=== PATIENT | female | born 1985 | race Caucasian/White ===

== ENCOUNTER 2017-02-27 19:37 | Emergency (ER) | payer SELFPAY ==
--- NOTE | 2017-02-28 05:44 | ER ---
ADMIT: 02/27/2017 RM/LOC: ER [facility] MR#: [id number] [address] [facility] [address] [place], [place] [address] ROBBY GUERRIER [address] [place] [address] Emergency Room Report SEX: F AGE: 32 : 1985 DATE: 02/27/2017 The patient is a 32-year-old female, complaining of nausea and vomiting after taking multiple recreational drugs for the past 2 days including methadone, alcohol, and methamphetamine, complains of protracted vomiting since. Exam remarkable for nontoxic, afebrile female, in no acute distress. Normal CBC, CMP, except potassium 3.5, negative hCG. Lipase normal, free T4, TSH. Negative Tylenol and salicylate. EKG showed sinus rhythm without ST-T or Q- wave change, normal QTc. The patient was given IV fluids, Zofran, with relief of nausea and vomiting. Home with Zofran 8 mg ODT t.i.d. #30 plus #3 from [facility]. Follow up with Dr. Marroquin as needed. David Tran MD/ nancy JOB #: [id number] CC: David Tran MD, Attending Physician Tee Marroquin MD, Family Physician Tee Marroquin MD
--- NOTE | 2017-03-02 15:35 | NUR ---
Received [facility] person referral. Attempted to contact pt. No answer, voice mail is not set up.
--- NOTE | 2017-03-03 12:27 | NUR ---
Called and spoke with pt. Pt states she is back home in [facility] and is no longer in [place]. Pt denies any needs or concerns at this time.
== END 2017-02-27 21:45 | disposition home or self-care (01) ==
LOC: ER 19:37
DX: F15.10 Other stimulant abuse, uncomplicated (principal); F10.10 Alcohol abuse, uncomplicated; R11.2 Nausea with vomiting, unspecified; Z88.8 Allergy status to other drugs, medicaments and biological substances; Z79.899 Other long term (current) drug therapy